=== PATIENT | female | born 2000 | race Two or more races ===

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

== ENCOUNTER 2020-05-29 06:25 | Inpatient (IN) | payer MEDICAID, OTHER ==
[~2020-05-29] VITALS: Ht 165.1 cm; Wt 107.2 kg
[2020-05-29] MEDS ORDERED: OXYTOCIN 30U/ 0.9% NaCL 500ML 500 ML IV ONE (07:00)
[2020-05-29] MEDS ORDERED: CALCIUM CARBONATE 500 MG TAB.CHEW PO PRN ×2 (07:00→20:30)
[2020-05-29] MEDS ORDERED: FENTANYL PF 100 MCG/2ML IVPush PRN (07:00)
[2020-05-29] MEDS ORDERED: OXYTOCIN 30U/ 0.9% NaCL 500ML 500 ML IV PRN (07:00)
[2020-05-29] MEDS ORDERED: MISOPROSTOL 25 MCG TABLET VG PRN (07:00)
[2020-05-29] MEDS ORDERED: FENTANYL PF 100 MCG/2ML IV PRN (07:00)
[2020-05-29] MEDS ORDERED: SODIUM CITRATE/CITRIC ACID 30 ML UDC PO PRN (07:00)
[2020-05-29] MEDS ORDERED: D5%-LACTATED RINGERS 1,000 ML IV SCH (07:00)
[2020-05-29] MEDS ORDERED: TERBUTALINE 1 MG/ML, 1ML SQ PRN (07:00)
[2020-05-29] MEDS ORDERED: ONDANSETRON 2MG/ML, 2ML IVPush PRN ×2 (07:00→15:00)
[2020-05-29] MEDS ORDERED: TERBUTALINE 1 MG/ML, 1ML IVPush PRN (07:00)
[2020-05-29 07:30] LABS: BASOPHILS % (AUTO) 1 % (0-1); EOSINOPHILS % (AUTO) 1 % (1-7); LYMPHOCYTES % (AUTO) 37 % (22-44); MEAN CORPUSCULAR HEMOGLOBIN 24.8 pg (27.0-34.8); MEAN PLATELET VOLUME 9.8 fL (7.4-10.4); MONOCYTES % (AUTO) 7 % (2-9); NEUTROPHILS % (AUTO) 54 % (42-75); PLATELET COUNT 222 x10^3/uL (130-400); RED BLOOD COUNT 4.85 x10^6/uL (3.82-5.3)
[2020-05-29 07:33] LABS: MD NO
[2020-05-29] MEDS ORDERED: OXYTOCIN 30U/ 0.9% NaCL 500ML 500 ML ONE (07:35)
[2020-05-29] MEDS: LACTATED RINGERS 1,000 ML IV SCH ×3 (07:40→14:03)
[2020-05-29] MEDS ORDERED: LIDOCAINE 1%, 20ML ONE (07:49)
[2020-05-29] MEDS ORDERED: MISOPROSTOL 200 MCG TABLET ONE (07:49)
[2020-05-29] MEDS ORDERED: NEWBORN KIT ONE (07:49)
[2020-05-29] MEDS ORDERED: PREN1TAB60 PO (08:01)
[2020-05-29] MEDS ORDERED: METF500T17 PO (08:02)
[2020-05-29] MEDS ORDERED: FENTANYL PF 100 MCG/2ML ONE (13:09)
[2020-05-29] MEDS ORDERED: FENTANYL/BUPIV./NS/PF 250 ML EPIDCONT ONE (13:10)
[2020-05-29] MEDS ORDERED: BUPIVACAINE 0.25% ONE (13:10)
[2020-05-29] MEDS ORDERED: FENTANYL/BUPIV./NS/PF 250 ML EPIDCONT SCH (15:00)
[2020-05-29] MEDS ORDERED: LACTATED RINGERS 1,000 ML IV SCH (15:00)
[2020-05-29] MEDS ORDERED: EPHEDRINE 50 MG/ML, 1ML IVPush PRN (15:00)
[2020-05-29] MEDS ORDERED: LACTATED RINGERS 1,000 ML IVBOLUS PRN (15:00)
[2020-05-29] MEDS ORDERED: LACTATED RINGERS 1,000 ML INTUTE PRN (19:00)
[2020-05-29] MEDS ORDERED: LACTATED RINGERS 1,000 ML INTUTE SCH (19:00)
[2020-05-29] MEDS ORDERED: SIMETHICONE 80 MG CHEW TAB PO PRN (20:30)
[2020-05-29] MEDS ORDERED: DOCUSATE 100 MG CAPSULE PO PRN (20:30)
[2020-05-29] MEDS ORDERED: ACETAMINOPHEN 325 MG TABLET PO PRN ×2 (20:30)
[2020-05-29] MEDS: OXYTOCIN 30U/ 0.9% NaCL 500ML 500 ML IV SCH ×4 (20:30→23:22)
[2020-05-29] MEDS ORDERED: ONDANSETRON 2MG/ML, 2ML IV PRN (20:30)
[2020-05-29] MEDS ORDERED: BISACODYL 10 MG SUPP PR PRN (20:30)
[2020-05-29] MEDS ORDERED: HYDROcodone/APAP 5/325 TABLET PO PRN ×2 (20:30)
[2020-05-29] MEDS ORDERED: MISOPROSTOL 200 MCG TABLET PR PRN (20:30)
[2020-05-29] MEDS ORDERED: IBUPROFEN 600 MG TABLET ONE (20:48)
[2020-05-29] MEDS: IBUPROFEN 600 MG TABLET PO PRN (20:50)
[2020-05-29 21:35] VITALS: BP 108/68
[2020-05-29] MEDS: metFORMIN 500 MG TABLET PO SCH (23:30)
[2020-05-30] VITALS: BP 113/70
[2020-05-30] MEDS: OXYTOCIN 30U/ 0.9% NaCL 500ML 500 ML IV SCH ×9 (00:48→16:30)
[2020-05-30 04:06] VITALS: BP 98/66
[2020-05-30 06:20] LABS: BASOPHILS % (AUTO) 0 % (0-1); EOSINOPHILS % (AUTO) 0 % (1-7); LYMPHOCYTES % (AUTO) 29 % (22-44); MEAN CORPUSCULAR HEMOGLOBIN 24.8 pg (27.0-34.8); MEAN PLATELET VOLUME 9.4 fL (7.4-10.4); MONOCYTES % (AUTO) 6 % (2-9); NEUTROPHILS % (AUTO) 64 % (42-75); PLATELET COUNT 180 x10^3/uL (130-400); RED BLOOD COUNT 4.23 x10^6/uL (3.82-5.3); RED CELL DISTRIBUTION WIDTH 15.7 % (9.6-15.2)
[2020-05-30 06:22] LABS: MD NO
[2020-05-30 07:15] VITALS: BP 105/71
[2020-05-30] MEDS ORDERED: metFORMIN 500 MG TABLET PO SCH (08:00)
[2020-05-30] MEDS: PRENATAL VIT/IRON/FA 1 EACH TABLET PO SCH (09:00)
[2020-05-30] MEDS: metFORMIN 500 MG TABLET PO SCH ×2 (09:37→20:26)
[2020-05-30 12:30] VITALS: BP 126/82
[2020-05-30 16:30] VITALS: BP 109/68
[2020-05-30 20:15] VITALS: BP 129/80
[2020-05-30] MEDS: IBUPROFEN 600 MG TABLET PO PRN (20:26)
[2020-05-31] MEDS: OXYTOCIN 30U/ 0.9% NaCL 500ML 500 ML IV SCH (02:30)
[2020-05-31] MEDS ORDERED: DOCU-131 PO (07:34)
[2020-05-31] MEDS ORDERED: IBUP-1222 PO (07:34)
[2020-05-31] MEDS ORDERED: METF500T17 PO (07:35)
[2020-05-31 07:50] VITALS: BP 110/75
[2020-05-31] MEDS: PRENATAL VIT/IRON/FA 1 EACH TABLET PO SCH (09:04)
[2020-05-31] MEDS: metFORMIN 500 MG TABLET PO SCH (09:04)
[2020-05-31] MEDS ORDERED: MEASLES,MUMPS&RUBELLA VACC/PF 0.5 ML SQ-VACC ONE (10:00)
[2020-05-31] MEDS: IBUPROFEN 600 MG TABLET PO PRN (12:38)
== END 2020-05-31 13:00 | disposition home or self-care (01) | DRG 805 ==
LOC: LDIP 06:25 → 2NW 21:40
PROVIDERS: ADMIT Obstetrics & Gynecology; ATTEND Obstetrics & Gynecology
PROC: 10E0XZZ Delivery of Products of Conception, External Approach (ICD-10-PCS; principal; 2020-05-29)
PROC: 10907ZC Drainage of Amniotic Fluid, Therapeutic from Products of Conception, Via Natural or Artificial Opening (ICD-10-PCS; 2020-05-29)
PROC: 10H07YZ Insertion of Other Device into Products of Conception, Via Natural or Artificial Opening (ICD-10-PCS; 2020-05-29)
PROC: 3E033VJ Introduction of Other Hormone into Peripheral Vein, Percutaneous Approach (ICD-10-PCS; 2020-05-29)
PROC: 3E0R3BZ Introduction of Anesthetic Agent into Spinal Canal, Percutaneous Approach (ICD-10-PCS; 2020-05-29)
PROC: 00HU33Z Insertion of Infusion Device into Spinal Canal, Percutaneous Approach (ICD-10-PCS; 2020-05-29)
PROC: 3E0134Z Introduction of Serum, Toxoid and Vaccine into Subcutaneous Tissue, Percutaneous Approach (ICD-10-PCS; 2020-05-31)
DX: O76 Abnormality in fetal heart rate and rhythm complicating labor and delivery (principal); O24.12 Pre-existing type 2 diabetes mellitus, in childbirth; Z37.0 Single live birth; D62 Acute posthemorrhagic anemia; O99.214 Obesity complicating childbirth; E66.01 Morbid (severe) obesity due to excess calories; E11.9 Type 2 diabetes mellitus without complications; Z20.822 Contact with and (suspected) exposure to COVID-19; O99.03 Anemia complicating the puerperium; Z3A.38 38 weeks gestation of pregnancy; Z86.16 Personal history of COVID-19; Z83.3 Family history of diabetes mellitus; Z86.32 Personal history of gestational diabetes; Z79.84 Long term (current) use of oral hypoglycemic drugs; Z23 Encounter for immunization
CPT/HCPCS: 36415; J7121; 82962; 85025; 86592; 86850; 86900; 87635; G0378; J2590; J3010; J7120